=== PATIENT | female | born 1955 | race Hispanic/Latino ===

== ENCOUNTER → 2024-05-13 | Day surgery (SDC) | payer MEDICARE ==
[2024-05-10 08:39] LABS: BASOPHILS % 0.3 % (0.0-1.0); EOSINOPHILS # (AUTO) 0.2 (0.0-0.4); EOSINOPHILS % 2.5 % (0.0-6.0); HEMATOCRIT 37.2 % (34.2-44.1); HEMOGLOBIN 11.4 g/dL (12.0-16.0); LYMPHOCYTES % 29.2 % (18.0-39.1); MEAN CORPUSCULAR HEMOGLOBIN 25.5 pg (28-32); MEAN CORPUSCULAR HGB CONC 30.6 g/dL (31-35); MEAN CORPUSCULAR VOLUME 83.2 fL (81-99); MONOCYTES # (AUTO) 0.4 (0.2-0.8); MONOCYTES % 6.3 % (4.4-11.3); NEUTROPHILS # (AUTO) 4.2 (2.1-6.9); NEUTROPHILS % 61.6 % (38.7-80.0); PLATELET COUNT 240 x10e3/uL (140-360); RED BLOOD COUNT 4.47 x10e6/uL (3.6-5.1); RED CELL DISTRIBUTION WIDTH 20.8 % (11.7-14.4); WHITE BLOOD COUNT 6.78 x10e3/uL (4.8-10.8)
[~2024-05-13] MED LIST: ALBUTEROL0.63 MG/3 INH; ASPIRIN81 MG PO; ATORVASTATIN CA20 MG PO; BENZONATATE200 MG PO; CETIRIZINE HCL10 MG PO; CLOPIDOGREL75 MG PO; FERROUS SU15 MG/1 ML PO; FUROSEMIDE40 MG PO; GLUCAGON FOR INJ 1 MG VIAL ONE; HYDROCODON-ACE1 EA11 PO; LIDOCAINE HCL 2% LOCAL INJ 5 ML SDV VIAL INJ ONE; MAGNESIUM PO; MECLIZINE HCL12.5 MG PO; METOPROLOL SUCC50 MG PO; MONTELUKAST SOD10 MG PO; NEURONTIN300 MG PO; OMEPRAZOLE40 MG PO; POTASSIUM CHLO20 ME1 PO; PROPOFOL IV EMULSION 10 MG/ML 20 ML VIAL ONE; REGLAN10 MG PO; SERTRALINE HCL100 MG PO; TRULICITY3 MG/0.5 M SC; VITAMIN D325 MCG PO
[2024-05-13] MEDS: LACTATED RINGER'S 1,000 ML ONE (08:40)
[2024-05-13 09:50] VITALS: BP 148/91; PULSE 74; RESP 16; TEMP 97.4; O2SAT 100
== END | disposition home or self-care (01) ==
LOC: OR 06:45
PROVIDERS: ATTEND Internal Medicine Gastroenterology
DX: Z12.11 Encounter for screening for malignant neoplasm of colon (principal); K57.30 Diverticulosis of large intestine without perforation or abscess without bleeding; K64.8 Other hemorrhoids; K21.00 Gastro-esophageal reflux disease with esophagitis, without bleeding; K44.9 Diaphragmatic hernia without obstruction or gangrene; K31.7 Polyp of stomach and duodenum; K31.89 Other diseases of stomach and duodenum; R11.2 Nausea with vomiting, unspecified; I10 Essential (primary) hypertension; I25.10 Atherosclerotic heart disease of native coronary artery without angina pectoris; E78.5 Hyperlipidemia, unspecified; J44.9 Chronic obstructive pulmonary disease, unspecified; G47.33 Obstructive sleep apnea (adult) (pediatric); E11.9 Type 2 diabetes mellitus without complications; Z79.85 Long-term (current) use of injectable non-insulin antidiabetic drugs; D64.9 Anemia, unspecified; M06.9 Rheumatoid arthritis, unspecified; M19.91 Primary osteoarthritis, unspecified site; M54.9 Dorsalgia, unspecified; R94.31 Abnormal electrocardiogram [ECG] [EKG]; Z86.73 Personal history of transient ischemic attack (TIA), and cerebral infarction without residual deficits; Z85.3 Personal history of malignant neoplasm of breast; Z92.3 Personal history of irradiation; Z01.810 Encounter for preprocedural cardiovascular examination; Z01.812 Encounter for preprocedural laboratory examination; Z79.02 Long term (current) use of antithrombotics/antiplatelets; Z79.899 Other long term (current) drug therapy; Z79.01 Long term (current) use of anticoagulants; Z79.1 Long term (current) use of non-steroidal anti-inflammatories (NSAID); Z79.82 Long term (current) use of aspirin
CPT/HCPCS: 43239; G0121; 36415; 45378; 85025; 88305; 88312; 88342; 93005; J1610; J2001

== ENCOUNTER 2024-06-13 14:25 | Inpatient (IN) | payer MEDICARE ==
[~2024-06-13] VITALS: Ht 149.9 cm; Wt 83.5 kg
[~2024-06-13 14:25] MED LIST changes: -GLUCAGON FOR INJ 1 MG VIAL ONE; -LIDOCAINE HCL 2% LOCAL INJ 5 ML SDV VIAL INJ ONE; -PROPOFOL IV EMULSION 10 MG/ML 20 ML VIAL ONE
[2024-06-13 14:54] VITALS: TEMP 99.8
[2024-06-13 15:21] LABS: BASOPHILS % 0.6 % (0.0-1.0); EOSINOPHILS # (AUTO) 0.2 (0.0-0.4); HEMATOCRIT 40.2 % (34.2-44.1); HEMOGLOBIN 12.6 g/dL (12.0-16.0); LYMPHOCYTES # (AUTO) 2.5 (1.0-3.2); LYMPHOCYTES % 37.3 % (18.0-39.1); MEAN CORPUSCULAR HEMOGLOBIN 26.6 pg (28-32); MEAN CORPUSCULAR HGB CONC 31.3 g/dL (31-35); MEAN CORPUSCULAR VOLUME 84.8 fL (81-99); MONOCYTES # (AUTO) 0.5 (0.2-0.8); MONOCYTES % 6.9 % (4.4-11.3); NEUTROPHILS # (AUTO) 3.5 (2.1-6.9); PLATELET COUNT 206 x10e3/uL (140-360); RED BLOOD COUNT 4.74 x10e6/uL (3.6-5.1); RED CELL DISTRIBUTION WIDTH 17.8 % (11.7-14.4); WHITE BLOOD COUNT 6.65 x10e3/uL (4.8-10.8)
[2024-06-13 15:25] LABS: INR 0.95; PROTHROMBIN TIME 13.2 seconds (11.9-14.5)
[2024-06-13 15:26] LABS: PARTIAL THROMBOPLASTIN TIME 27.6 seconds (23.8-35.5)
[2024-06-13 15:33] LABS: ALANINE AMINOTRANSFERASE 17 IU/L (0-55); ALBUMIN 3.7 g/dL (3.5-5.0); ALBUMIN/GLOBULIN RATIO 0.9 (0.8-2.0); ALKALINE PHOSPHATASE 115 IU/L (40-150); BILIRUBIN,TOTAL 0.3 mg/dL (0.2-1.2); BLOOD UREA NITROGEN 20 mg/dL (7-26); BUN/CREATININE RATIO 23 (6-25); CALCIUM 9.5 mg/dL (8.4-10.2); CARBON DIOXIDE 26 mmol/L (22-29); CHLORIDE 102 mmol/L (98-107); CREATINE KINASE 60 IU/L (29-168); CREATININE, SERUM 0.86 mg/dL (0.57-1.11); EST GLOMERULAR FILTRATION RATE 73 ML/MIN (>=60); GLUCOSE 98 mg/dL (74-118); MAGNESIUM 1.6 MG/DL (1.3-2.1); SODIUM 139 mmol/L (136-145); TOTAL PROTEIN 7.7 g/dL (6.5-8.1)
[2024-06-13 15:43] LABS: TROPONIN I < 0.001 ng/mL (0-0.300)
[2024-06-13] MEDS ORDERED: SODIUM CHLORIDE 0.9% 100 ML ONE (15:57)
[2024-06-13] MEDS ORDERED: IOPAMIDOL 370 MG/ML 100 ML INFUS..BTL INJ ONE (15:57)
[2024-06-13 16:52] LABS: BILIRUBIN,URINE NEGATIVE (NEGATIVE); CLARITY,URINE CLEAR (CLEAR); COLOR,URINE YELLOW (YELLOW); GLUCOSE, URINE NEGATIVE (NEGATIVE); KETONES,URINE NEGATIVE (NEGATIVE); LEUKOCYTE ESTERASE ,URINE MODERATE (NEGATIVE); NITRITE,URINE NEGATIVE (NEGATIVE); PH,URINE 7 (5 - 7); PROTEIN,URINE DIPSTICK NEGATIVE (NEGATIVE); URINE UROBILINOGEN 0.2 mg/dL (0.2 - 1)
[2024-06-13 16:54] LABS: BACTERIA,URINE MODERATE /HPF; EPITHELIAL CELLS,URINE FEW /LPF; RBC,URINE 0-5 /HPF (0-5)
[2024-06-13 21:18] VITALS: PULSE 71; RESP 16
[2024-06-13 21:24] VITALS: BP 108/64; PULSE 67; RESP 22; TEMP 97.6; O2SAT 100
[2024-06-13] MEDS: Morphine 2mg Syringe 2 MG/ML SYR IV PRN (22:03)
[2024-06-13] MEDS: ONDANSETRON HCL INJ 2MG/ML 2ML 2 MG/ML VIAL IV PRN (22:03)
[2024-06-13] MEDS ORDERED: GABAPENTIN400 MG PO (22:27)
[2024-06-13] MEDS ORDERED: VENTOLIN HFA18 GM PO (22:27)
[2024-06-13] MEDS ORDERED: HYDROCODON-ACE1 EA12 PO (22:27)
[2024-06-13] MEDS ORDERED: BENEFIBER1 EAC1 PO (22:30)
[2024-06-13 22:41] VITALS: BP 149/110; PULSE 71; RESP 16; TEMP 99.8; O2SAT 100
[2024-06-13 22:45] VITALS: BP 149/110; PULSE 71; RESP 16; TEMP 99.8; O2SAT 100
[2024-06-13] MEDS ORDERED: ACETAMINOPHEN 325 MG TAB PO PRN (22:45)
[2024-06-13] MEDS ORDERED: HYDRALAZINE HCL 20 MG/ML VIAL IV PRN (22:45)
[2024-06-13] MEDS: INFLUENZA VIRUS VAC SPLIT INJ 0.5 ML SYR IM ONE (23:02)
[2024-06-13] MEDS: SODIUM CHLORIDE 0.9% 100 ML ONE (23:13)
[2024-06-13] MEDS: MAGNESIUM SULFATE 2GM/50ML 50 ML IV ONE (23:14)
[2024-06-13 23:30] VITALS: PULSE 67; RESP 18; O2SAT 97
[2024-06-14] VITALS (11 sets, daily range): BP systolic 113–135; BP diastolic 62–85; PULSE 64–77; RESP 17–20; TEMP 97.6–98.5; O2SAT 95–100
[2024-06-14 05:44] LABS: BASOPHILS % 0.3 % (0.0-1.0); EOSINOPHILS # (AUTO) 0.2 (0.0-0.4); EOSINOPHILS % 2.8 % (0.0-6.0); HEMATOCRIT 37.2 % (34.2-44.1); HEMOGLOBIN 11.5 g/dL (12.0-16.0); LYMPHOCYTES # (AUTO) 1.9 (1.0-3.2); LYMPHOCYTES % 33.2 % (18.0-39.1); MEAN CORPUSCULAR HEMOGLOBIN 26.3 pg (28-32); MEAN CORPUSCULAR HGB CONC 30.9 g/dL (31-35); MEAN CORPUSCULAR VOLUME 84.9 fL (81-99); MONOCYTES # (AUTO) 0.5 (0.2-0.8); MONOCYTES % 7.8 % (4.4-11.3); NEUTROPHILS # (AUTO) 3.2 (2.1-6.9); NEUTROPHILS % 55.7 % (38.7-80.0); PLATELET COUNT 177 x10e3/uL (140-360); RED BLOOD COUNT 4.38 x10e6/uL (3.6-5.1); RED CELL DISTRIBUTION WIDTH 17.5 % (11.7-14.4); WHITE BLOOD COUNT 5.78 x10e3/uL (4.8-10.8)
[2024-06-14 06:04] LABS: ALBUMIN 3.3 g/dL (3.5-5.0); ANION GAP 13.6 mmol/L (8-16); BILIRUBIN,TOTAL 0.3 mg/dL (0.2-1.2); CALCIUM 9.2 mg/dL (8.4-10.2); CREATININE, SERUM 0.82 mg/dL (0.57-1.11); POTASSIUM 3.6 mmol/L (3.5-5.1); TOTAL PROTEIN 6.6 g/dL (6.5-8.1)
[2024-06-14 06:37] LABS: FOLATE 9.7 ng/mL (7.0-15.4)
[2024-06-14 06:38] LABS: CHOL/HDL RATIO 3.8 (3.0-3.6); PHOSPHORUS 3.7 MG/DL (2.3-4.7)
[2024-06-14 06:43] LABS: CREATINE KINASE 57 IU/L (29-168)
[2024-06-14 06:46] LABS: FREE T4 (FREE THYROXINE) 0.83 ng/dL (0.8-1.8); THYROID STIMULATING HORMONE 0.688 uIU/mL (0.350-4.940); TROPONIN I < 0.001 ng/mL (0-0.300)
[2024-06-14] MEDS: ASCORBIC ACID 500 MG TAB PO SCH (09:00)
[2024-06-14] MEDS ORDERED: DOCUSATE SODIUM 100 MG CAP PO SCH (09:00)
[2024-06-14] MEDS ORDERED: METOCLOPRAMIDE HCL 10 MG TAB PO SCH (09:00)
[2024-06-14] MEDS ORDERED: ALBUTEROL SULF 0.083% NEB SOLN 3 ML NEB INH PRN (09:00)
[2024-06-14] MEDS ORDERED: CLOPIDOGREL BISULFATE 75 MG TAB PO SCH (09:00)
[2024-06-14] MEDS: WHEAT DEXTRIN PO SCH (09:00)
[2024-06-14] MEDS ORDERED: FAMOTIDINE 20 MG/2 ML VIAL IV SCH (09:00)
[2024-06-14] MEDS: MECLIZINE HCL 12.5 MG TAB PO SCH (11:11)
[2024-06-14] MEDS: LORATADINE 10 MG TAB PO SCH (11:11)
[2024-06-14] MEDS: CYANOCOBALAMIN INJ 1,000 MCG/ML VIAL IM SCH (11:11)
[2024-06-14] MEDS: ASPIRIN 81 MG ENTERIC COATED PO SCH (11:11)
[2024-06-14] MEDS: FERROUS SULFATE 325 MG TAB PO SCH (11:12)
[2024-06-14] MEDS: CLOPIDOGREL BISULFATE 75 MG TAB PO SCH (11:12)
[2024-06-14] MEDS: DOCUSATE SODIUM 100 MG CAP PO SCH (11:12)
[2024-06-14] MEDS: FUROSEMIDE 40 MG TAB PO SCH (11:12)
[2024-06-14] MEDS: POTASSIUM CHLORIDE 20 MEQ TAB CR PO SCH (11:12)
[2024-06-14] MEDS: PANTOPRAZOLE SOD 40 MG TABEC PO SCH (11:13)
[2024-06-14] MEDS: BENZONATATE 100 MG CAP PO SCH (11:13)
[2024-06-14] MEDS: CHOLECALCIFEROL 1,000 UNIT TAB PO SCH (11:13)
[2024-06-14] MEDS: METOPROLOL SUCCINATE 50 MG TAB XL PO SCH (11:14)
[2024-06-14] MEDS: ONDANSETRON HCL INJ 2MG/ML 2ML 2 MG/ML VIAL IV PRN (11:38)
[2024-06-14] MEDS: GABAPENTIN 400 MG CAP PO SCH (14:00)
[2024-06-14 14:05] LABS: TROPONIN I 0.003 ng/mL (0-0.300)
[2024-06-14] MEDS: SERTRALINE HCL 100 MG TAB PO SCH (20:59)
[2024-06-14] MEDS: MONTELUKAST SODIUM 10 MG TAB PO SCH (20:59)
[2024-06-14] MEDS: ATORVASTATIN 40 MG TAB PO SCH (21:00)
[2024-06-15] VITALS (8 sets, daily range): BP systolic 101–130; BP diastolic 64–107; PULSE 65–73; RESP 16–21; TEMP 97.9–98.7; O2SAT 95–99
[2024-06-15] MEDS: ASPIRIN 81 MG CHEW TAB PO SCH (08:44)
[2024-06-16] VITALS (8 sets, daily range): BP systolic 113–130; BP diastolic 62–79; PULSE 62–83; RESP 16–18; TEMP 97.7–99.3; O2SAT 95–100
[2024-06-16 08:02] LABS: BASOPHILS % 0.4 % (0.0-1.0); EOSINOPHILS # (AUTO) 0.2 (0.0-0.4); EOSINOPHILS % 2.9 % (0.0-6.0); HEMATOCRIT 40.6 % (34.2-44.1); HEMOGLOBIN 12.9 g/dL (12.0-16.0); LYMPHOCYTES % 29.4 % (18.0-39.1); MEAN CORPUSCULAR HEMOGLOBIN 26.8 pg (28-32); MEAN CORPUSCULAR HGB CONC 31.8 g/dL (31-35); MEAN CORPUSCULAR VOLUME 84.2 fL (81-99); MONOCYTES # (AUTO) 0.4 (0.2-0.8); MONOCYTES % 6.5 % (4.4-11.3); NEUTROPHILS # (AUTO) 4.1 (2.1-6.9); NEUTROPHILS % 60.5 % (38.7-80.0); PLATELET COUNT 183 x10e3/uL (140-360); RED BLOOD COUNT 4.82 x10e6/uL (3.6-5.1); RED CELL DISTRIBUTION WIDTH 17.6 % (11.7-14.4); WHITE BLOOD COUNT 6.78 x10e3/uL (4.8-10.8)
[2024-06-16 08:19] LABS: ANION GAP 17.5 mmol/L (8-16); CALCIUM 9.2 mg/dL (8.4-10.2); CREATININE, SERUM 0.93 mg/dL (0.57-1.11); POTASSIUM 3.5 mmol/L (3.5-5.1)
[2024-06-16] MEDS: POLYETHYLENE GLYCOL 3350 17 GM PACK PO PRN (09:54)
[2024-06-16] MEDS: DEXAMETHASONE SOD PHOS INJ 4 MG/ML SDV IV SCH (17:35)
[2024-06-17] VITALS (8 sets, daily range): BP systolic 137–156; BP diastolic 76–89; PULSE 70–85; RESP 17–18; TEMP 97.7–98.4; O2SAT 98–100
[2024-06-17] MEDS: LACTULOSE SYRUP 20 GM/30 ML UDC PO PRN (16:29)
[2024-06-18] VITALS (7 sets, daily range): BP systolic 129–143; BP diastolic 72–86; PULSE 61–88; RESP 16–18; TEMP 97.6–99.2; O2SAT 95–100
[2024-06-19] VITALS (7 sets, daily range): BP systolic 128–146; BP diastolic 66–79; PULSE 62–76; RESP 18–21; TEMP 97.4–98.2; O2SAT 97–100
[2024-06-19 14:56] LABS: ALBUMIN 3.7 g/dL (3.5-5.0); ALBUMIN/GLOBULIN RATIO 0.9 (0.8-2.0); ANION GAP 16.9 mmol/L (8-16); BILIRUBIN,TOTAL 0.2 mg/dL (0.2-1.2); CALCIUM 9.6 mg/dL (8.4-10.2); CREATININE, SERUM 1.03 mg/dL (0.57-1.11); POTASSIUM 3.9 mmol/L (3.5-5.1); TOTAL PROTEIN 7.8 g/dL (6.5-8.1)
[2024-06-20 00:16] VITALS: BP 130/79; PULSE 69; RESP 18; TEMP 97.9
[2024-06-20 04:00] VITALS: BP 126/73; PULSE 67; RESP 18; TEMP 97.8; O2SAT 98
[2024-06-20 05:47] LABS: BASOPHILS % 0.2 % (0.0-1.0); HEMATOCRIT 40.7 % (34.2-44.1); LYMPHOCYTES % 20.6 % (18.0-39.1); MEAN CORPUSCULAR HEMOGLOBIN 26.6 pg (28-32); MEAN CORPUSCULAR HGB CONC 31.9 g/dL (31-35); MEAN CORPUSCULAR VOLUME 83.4 fL (81-99); MONOCYTES # (AUTO) 0.5 (0.2-0.8); MONOCYTES % 5.3 % (4.4-11.3); NEUTROPHILS # (AUTO) 7.1 (2.1-6.9); NEUTROPHILS % 73.5 % (38.7-80.0); PLATELET COUNT 266 x10e3/uL (140-360); RED BLOOD COUNT 4.88 x10e6/uL (3.6-5.1); RED CELL DISTRIBUTION WIDTH 16.7 % (11.7-14.4); WHITE BLOOD COUNT 9.61 x10e3/uL (4.8-10.8)
[2024-06-20] MEDS ORDERED: Vancomycin IV 1 GM VIAL ONE (06:55)
[2024-06-20] MEDS ORDERED: THROMBIN FOR SOLN 5,000 UNIT VIAL ONE (06:55)
[2024-06-20] MEDS ORDERED: LIDOCAINE 1% W/EPINEPHRINE 20 ML VIAL ONE (06:55)
[2024-06-20] MEDS ORDERED: DEXMEDETOMIDINE HCL 200 MCG/2 ML VIAL ONE ×2 (07:30→12:49)
[2024-06-20] MEDS ORDERED: CEPACOL SORE THROAT LOZENGES PO PRN (09:15)
[2024-06-20] MEDS ORDERED: ACETAMINOPHEN 325 MG TAB PO PRN (09:15)
[2024-06-20] MEDS ORDERED: PROMETHAZINE HCL (IM) 25 MG/ML VIAL IM PRN (09:15)
[2024-06-20] MEDS ORDERED: MAGNESIUM/ALUMINUM/SIMETHICONE 30 ML UDC PO PRN (09:15)
[2024-06-20] MEDS ORDERED: CARISOPRODOL 350 MG TAB PO PRN (09:15)
[2024-06-20 10:10] VITALS: BP 137/88; PULSE 61; RESP 16; TEMP 97.8; O2SAT 100
[2024-06-20] MEDS: LACTATED RINGER'S 1,000 ML IV SCH (10:10)
[2024-06-20] MEDS: Morphine 2mg Syringe 2 MG/ML SYR IV PRN (10:11)
[2024-06-20] MEDS: ONDANSETRON HCL INJ 2MG/ML 2ML 2 MG/ML VIAL IV PRN (10:11)
[2024-06-20 11:00] VITALS: BP 156/81; PULSE 60; RESP 16; TEMP 97.7; O2SAT 98
[2024-06-20] MEDS ORDERED: ONDANSETRON HCL INJ 2MG/ML 2ML 2 MG/ML VIAL ONE (12:49)
[2024-06-20] MEDS ORDERED: SEVOFLURANE INHAL SOLN 250 ML PEN BTL ONE (12:49)
[2024-06-20] MEDS ORDERED: SUGAMMADEX SODIUM 200 MG/2 ML VIAL IV ONE (12:49)
[2024-06-20] MEDS ORDERED: PROPOFOL IV EMULSION 10 MG/ML 20 ML VIAL ONE (12:49)
[2024-06-20] MEDS ORDERED: SODIUM CHLORIDE 0.9% INJ 100 ML BAG ONE (12:49)
[2024-06-20] MEDS ORDERED: LIDOCAINE HCL 2% LOCAL INJ 5 ML SDV VIAL INJ ONE (12:49)
[2024-06-20] MEDS ORDERED: FAMOTIDINE 20 MG/2 ML VIAL IV ONE (12:49)
[2024-06-20] MEDS ORDERED: ROCURONIUM BROMIDE 10 MG/ML 5ML VIAL IV ONE (12:49)
[2024-06-20] MEDS ORDERED: ACETAMINOPHEN 1000 MG/100 ML IV ONE (12:49)
[2024-06-20 16:00] VITALS: BP 123/77; PULSE 63; RESP 18; TEMP 98.2; O2SAT 98
[2024-06-20] MEDS ORDERED: FENTANYL CITRATE/PF 100MCG/2 ML INJ ONE (16:41)
[2024-06-20 20:00] VITALS: BP 102/76; PULSE 68; RESP 16; TEMP 98.6; O2SAT 98
[2024-06-20] MEDS: INSULIN REGULAR, HUMAN 100 UNIT/1 ML SQ SCH (22:15)
[2024-06-20] MEDS ORDERED: DEXTROSE 50% SYRINGE 50 ML IV PRN (22:15)
[2024-06-21] VITALS (7 sets, daily range): BP systolic 127–159; BP diastolic 69–95; PULSE 66–74; RESP 16–22; TEMP 97–98.4; O2SAT 96–100
[2024-06-21 05:50] LABS: BASOPHILS % 0.2 % (0.0-1.0); HEMATOCRIT 37.6 % (34.2-44.1); HEMOGLOBIN 11.5 g/dL (12.0-16.0); LYMPHOCYTES # (AUTO) 1.7 (1.0-3.2); LYMPHOCYTES % 19.6 % (18.0-39.1); MEAN CORPUSCULAR HEMOGLOBIN 26.4 pg (28-32); MEAN CORPUSCULAR HGB CONC 30.6 g/dL (31-35); MEAN CORPUSCULAR VOLUME 86.4 fL (81-99); MONOCYTES # (AUTO) 0.5 (0.2-0.8); NEUTROPHILS # (AUTO) 6.3 (2.1-6.9); NEUTROPHILS % 73.8 % (38.7-80.0); PLATELET COUNT 202 x10e3/uL (140-360); RED BLOOD COUNT 4.35 x10e6/uL (3.6-5.1); RED CELL DISTRIBUTION WIDTH 16.9 % (11.7-14.4); WHITE BLOOD COUNT 8.54 x10e3/uL (4.8-10.8)
[2024-06-21 06:25] LABS: ANION GAP 16.5 mmol/L (8-16); CALCIUM 8.4 mg/dL (8.4-10.2); CREATININE, SERUM 0.8 mg/dL (0.57-1.11); MAGNESIUM 1.3 MG/DL (1.3-2.1); PHOSPHORUS 3.3 MG/DL (2.3-4.7); POTASSIUM 3.5 mmol/L (3.5-5.1)
[2024-06-21] MEDS: MAGNESIUM SULFATE 2GM/50ML 50 ML IV ONE ×2 (09:51→12:08)
[2024-06-22] VITALS: BP 160/80; PULSE 66; RESP 19; TEMP 97.5; O2SAT 100
[2024-06-22 04:45] VITALS: BP 169/85; PULSE 62; RESP 18; TEMP 97.5; O2SAT 100
[2024-06-22] MEDS: OXYCODONE/ACETAMINOPHEN 5-325 1 EACH TABLET PO PRN (05:47)
[2024-06-22 05:57] LABS: ANION GAP 16.9 mmol/L (8-16); CALCIUM 9.1 mg/dL (8.4-10.2); CREATININE, SERUM 0.73 mg/dL (0.57-1.11); MAGNESIUM 1.8 MG/DL (1.3-2.1); POTASSIUM 3.9 mmol/L (3.5-5.1)
[2024-06-22 08:15] VITALS: BP 141/77; PULSE 62; RESP 21; TEMP 98.2; O2SAT 100
[2024-06-22 12:00] VITALS: BP 121/72; PULSE 70; RESP 21; TEMP 98.9; O2SAT 100
[2024-06-22] MEDS ORDERED: CEFTRIAXONE1 GM IV (14:02)
[2024-06-22] MEDS ORDERED: DEXTROSE 50%-WA50 M1 IV (14:02)
[2024-06-22] MEDS ORDERED: SORE THROAT LO1 EAC3 PO (14:02)
[2024-06-22] MEDS ORDERED: HYDRALAZIN20 MG/1 ML IV (14:02)
[2024-06-22] MEDS ORDERED: Magnesium/Alum/Simethicone PO (14:02)
[2024-06-22] MEDS ORDERED: Oxycodone/Acetaminophen 5-325 PO (14:02)
[2024-06-22] MEDS ORDERED: Docusate Sodium PO (14:02)
[2024-06-22] MEDS ORDERED: ASCORBIC ACID500 MG PO (14:02)
[2024-06-22] MEDS ORDERED: MIRALAX17 GM PO (14:02)
[2024-06-22] MEDS ORDERED: LACTATED RING1000 ML IV (14:02)
[2024-06-22] MEDS ORDERED: LACTULOSE20 GM/30 M PO (14:02)
[2024-06-22] MEDS ORDERED: ONDANSETRON4 MG/2 M1 IV (14:02)
[2024-06-22] MEDS ORDERED: CARISOPRODOL350 MG PO (14:02)
[2024-06-22] MEDS ORDERED: MORPHINE 2 MG IV (14:02)
[2024-06-22] MEDS ORDERED: DEXAMETHASO4 MG/1 ML IV (14:02)
[2024-06-22] MEDS ORDERED: PROMETHAZI25 MG/1 M2 IM (14:02)
[2024-06-22] MEDS ORDERED: ACETAMINOPHEN325 M1 PO (14:02)
[2024-06-22] MEDS ORDERED: HUMULIN R100 UNIT/2 SQ (14:02)
[2024-06-22 16:00] VITALS: BP 127/91; PULSE 73; RESP 21; TEMP 98.3; O2SAT 100
[2024-06-22 20:00] VITALS: BP 106/87; PULSE 81; RESP 16; TEMP 98.5; O2SAT 100
== END 2024-06-22 20:00 | DRG 472 ==
LOC: ER 15:10 → ERHOLD 19:01 → MED/SURG 21:46
PROVIDERS: ADMIT Internal Medicine; ATTEND Internal Medicine
PROC: 0RG20K0 Fusion of 2 or more Cervical Vertebral Joints with Nonautologous Tissue Substitute, Anterior Approach, Anterior Column, Open Approach (ICD-10-PCS; 2024-06-20)
PROC: 0PB30ZZ Excision of Cervical Vertebra, Open Approach (ICD-10-PCS; 2024-06-20)
PROC: 00NW0ZZ Release Cervical Spinal Cord, Open Approach (ICD-10-PCS; principal; 2024-06-20 07:27)
DX: M48.02 Spinal stenosis, cervical region (principal); G99.2 Myelopathy in diseases classified elsewhere; J98.11 Atelectasis; N39.0 Urinary tract infection, site not specified; G51.0 Bell's palsy; E11.42 Type 2 diabetes mellitus with diabetic polyneuropathy; E78.5 Hyperlipidemia, unspecified; D51.9 Vitamin B12 deficiency anemia, unspecified; I67.2 Cerebral atherosclerosis; E83.42 Hypomagnesemia; I25.10 Atherosclerotic heart disease of native coronary artery without angina pectoris; F41.9 Anxiety disorder, unspecified; F32.A Depression, unspecified; H02.401 Unspecified ptosis of right eyelid; E66.01 Morbid (severe) obesity due to excess calories; Z68.37 Body mass index [BMI] 37.0-37.9, adult; R53.1 Weakness; Z79.02 Long term (current) use of antithrombotics/antiplatelets; Z79.82 Long term (current) use of aspirin; Z79.85 Long-term (current) use of injectable non-insulin antidiabetic drugs; Z86.73 Personal history of transient ischemic attack (TIA), and cerebral infarction without residual deficits; Z95.5 Presence of coronary angioplasty implant and graft; Z85.3 Personal history of malignant neoplasm of breast; Z90.49 Acquired absence of other specified parts of digestive tract; Z88.5 Allergy status to narcotic agent; Z88.8 Allergy status to other drugs, medicaments and biological substances; Z91.018 Allergy to other foods; Z82.49 Family history of ischemic heart disease and other diseases of the circulatory system; Z83.3 Family history of diabetes mellitus
CPT/HCPCS: 36415; 70496; 70498; 70551; 71045; 72040; 72141; 72146; 72148; 76000; 80048; 80053; 80061; 81001; 82550; 82607; 82746; 82948; 83036; 83735; 83880; 84100; 84439; 84443; 84484; 85025; 85610; 85730; 86850; 86900; 87086; 88304; 88311; 92523; 93005; 93306; 94799; 99252; 99284; C1713; J0690; J0696; J1100; J2003; J2270; J2405; J3420; J3475; J7050; Q9967

== ENCOUNTER → 2024-07-24 | Outpatient (REF) | payer MEDICARE ==
[~2024-07-24] MED LIST changes: +ACETAMINOPHEN325 M1 PO; +ASCORBIC ACID500 MG PO; +BENEFIBER1 EAC1 PO; +CARISOPRODOL350 MG PO; +CEFTRIAXONE1 GM IV; +DEXAMETHASO4 MG/1 ML IV; +DEXTROSE 50%-WA50 M1 IV; +Docusate Sodium PO; +GABAPENTIN400 MG PO; +HUMULIN R100 UNIT/2 SQ; +HYDRALAZIN20 MG/1 ML IV; +HYDROCODON-ACE1 EA12 PO; +LACTATED RING1000 ML IV; +LACTULOSE20 GM/30 M PO; +MIRALAX17 GM PO; +MORPHINE 2 MG IV; +Magnesium/Alum/Simethicone PO; +ONDANSETRON4 MG/2 M1 IV; +Oxycodone/Acetaminophen 5-325 PO; +PROMETHAZI25 MG/1 M2 IM; +SORE THROAT LO1 EAC3 PO; +VENTOLIN HFA18 GM PO
== END ==
LOC: RAD 09:50
PROVIDERS: ATTEND Neurological Surgery
DX: M50.022 Cervical disc disorder at C5-C6 level with myelopathy (principal)
CPT/HCPCS: 72050

== ENCOUNTER 2024-12-28 14:46 | Emergency (ER) | payer MEDICARE ==
[~2024-12-28] VITALS: Ht 149.9 cm; Wt 79.2 kg
[2024-12-28] MEDS: ONDANSETRON HCL INJ 2MG/ML 2ML 2 MG/ML VIAL IV STA (16:51)
[2024-12-28] MEDS: SODIUM CHLORIDE 0.9% 1000ML 1,000 ML IV SCH (16:51)
[2024-12-28] MEDS ORDERED: ONDANSETRON ODT4 MG PO (17:00)
[2024-12-28 17:33] VITALS: PULSE 78; RESP 16; TEMP 98.1; O2SAT 100
[2024-12-28] MEDS ORDERED: OZEMPIC1 MG/0.71 (20:02)
[2024-12-28] MEDS ORDERED: BENZONATATE100 MG PO (20:02)
[2024-12-28] MEDS ORDERED: ZETIA10 MG PO (20:02)
== END 2024-12-28 17:33 | disposition home or self-care (01) ==
LOC: FSED 14:49
DX: R11.2 Nausea with vomiting, unspecified (principal); I10 Essential (primary) hypertension; E11.65 Type 2 diabetes mellitus with hyperglycemia; E78.5 Hyperlipidemia, unspecified; Z85.3 Personal history of malignant neoplasm of breast; Z86.73 Personal history of transient ischemic attack (TIA), and cerebral infarction without residual deficits; Z95.5 Presence of coronary angioplasty implant and graft
CPT/HCPCS: 80053; 81003; 84484; 85025; 93005; 96374; 99284; J2405; J7030

== ENCOUNTER → 2025-01-01 | Outpatient (REF) | payer MEDICARE ==
[~2025-01-01] MED LIST changes: +BENZONATATE100 MG PO; +ONDANSETRON ODT4 MG PO; +OZEMPIC1 MG/0.71; +ZETIA10 MG PO
== END ==
LOC: RAD 13:45
PROVIDERS: ATTEND Neurological Surgery
DX: M50.022 Cervical disc disorder at C5-C6 level with myelopathy (principal)
CPT/HCPCS: 72052

== ENCOUNTER 2025-02-17 13:12 | Emergency (ER) | payer MEDICARE ==
[~2025-02-17] VITALS: Ht 149.9 cm; Wt 78.9 kg
[2025-02-17 13:15] VITALS: TEMP 99.4
[2025-02-17] MEDS ORDERED: SODIUM CHLORIDE 0.9% 100 ML ONE (13:34)
[2025-02-17] MEDS ORDERED: IOPAMIDOL 370 MG/ML 100 ML INFUS..BTL INJ ONE (13:34)
[2025-02-17] MEDS ORDERED: ALTEPLASE 100 MG/VIAL ONE (14:29)
[2025-02-17] MEDS ORDERED: SODIUM CHLORIDE FLUSH 10 ML SYR IV PRN (14:30)
[2025-02-17] MEDS: TENECTEPLASE FOR IV SOLN 50 MG KIT IV ONE (14:40)
[2025-02-17] MEDS: ALTEPLASE 50 MG/VIAL (29 MILLION IU) IV ONE ×2 (15:20)
[2025-02-17 15:30] VITALS: PULSE 8; RESP 22
[2025-02-17 16:12] VITALS: BP 142/73; PULSE 78; RESP 16; O2SAT 94
== END 2025-02-17 16:18 | disposition other institution (70) ==
LOC: FSED 13:17
DX: R51.9 Headache, unspecified (principal); I63.9 Cerebral infarction, unspecified; E11.65 Type 2 diabetes mellitus with hyperglycemia; I10 Essential (primary) hypertension; E78.5 Hyperlipidemia, unspecified; K21.9 Gastro-esophageal reflux disease without esophagitis; I25.10 Atherosclerotic heart disease of native coronary artery without angina pectoris; J45.909 Unspecified asthma, uncomplicated; R94.31 Abnormal electrocardiogram [ECG] [EKG]; Z85.3 Personal history of malignant neoplasm of breast; Z95.5 Presence of coronary angioplasty implant and graft
CPT/HCPCS: 36415; 70450; 70496; 70498; 71045; 80053; 80076; 82948; 83880; 84484; 85025; 85610; 93005; 94760; 99282; J7050; Q9967

== ENCOUNTER → 2025-04-05 | Outpatient (REF) | payer MEDICARE | LOC: RAD 15:04 | PROVIDERS: ATTEND Neurological Surgery | DX: M50.022 Cervical disc disorder at C5-C6 level with myelopathy (principal) | CPT/HCPCS: 72052 ==

== ENCOUNTER 2025-05-08 17:55 | Emergency (ER) | payer MEDICARE ==
[~2025-05-08] VITALS: Ht 149.9 cm; Wt 77.1 kg
[2025-05-08] MEDS ORDERED: HYDROCODON-ACE1 EA12 (18:22)
[2025-05-08] MEDS ORDERED: FEROSUL325 MG PO (18:22)
[2025-05-08] MEDS ORDERED: NEURONTIN400 MG PO (18:22)
[2025-05-08] MEDS ORDERED: B-COMPLEX1 EACH (18:22)
[2025-05-08] MEDS ORDERED: TRAZODONE HCL100 MG PO (18:22)
[2025-05-08] MEDS ORDERED: DICYCLOMINE HCL10 MG PO (18:22)
[2025-05-08] MEDS ORDERED: ALENDRONATE SOD70 MG (18:22)
[2025-05-08] MEDS ORDERED: METHOCARBAMOL750 MG PO (18:22)
[2025-05-08] MEDS ORDERED: HYDROCODONE/APAP 5MG-325MG TAB ONE (18:27)
[2025-05-08] MEDS: HYDROCODONE/APAP 5MG-325MG TAB PO ONE (18:53)
[2025-05-08 20:38] VITALS: PULSE 86; RESP 16; TEMP 98.2
[2025-05-08 21:15] VITALS: BP 116/64; PULSE 86; RESP 16; TEMP 98.2; O2SAT 95
== END 2025-05-08 20:41 | disposition home or self-care (01) ==
LOC: FSED 17:59
DX: S00.83XA Contusion of other part of head, initial encounter (principal); M25.511 Pain in right shoulder; S60.221A Contusion of right hand, initial encounter; S80.12XA Contusion of left lower leg, initial encounter; S80.11XA Contusion of right lower leg, initial encounter; W18.2XXA Fall in (into) shower or empty bathtub, initial encounter; Y93.E1 Activity, personal bathing and showering; Y92.89 Other specified places as the place of occurrence of the external cause; I10 Essential (primary) hypertension; E11.9 Type 2 diabetes mellitus without complications; E78.5 Hyperlipidemia, unspecified; K21.9 Gastro-esophageal reflux disease without esophagitis; F41.9 Anxiety disorder, unspecified; F32.A Depression, unspecified; Z85.3 Personal history of malignant neoplasm of breast; Z95.5 Presence of coronary angioplasty implant and graft
CPT/HCPCS: 70450; 72125; 99284